=== PATIENT | male | born 1970 | race Caucasian/White ===

== ENCOUNTER 2017-07-10 07:54 | Day surgery (SDC) | payer OTHER ==
[~2017-07-10] VITALS: Ht 175.3 cm; Wt 108.9 kg
[2017-07-10 08:19] VITALS: BP 147/85
[2017-07-10 12:37] VITALS: BP 145/94
== END 2017-07-10 12:40 | disposition home or self-care (01) ==
LOC: DS 07:54 → OR 09:30 → DS 09:30
PROVIDERS: Neuromusculoskeletal Medicine, Sports Medicine
PROC: 0LN70ZZ Release Right Hand Tendon, Open Approach (ICD-10-PCS; principal; 2017-07-10 10:00)
DX: M65.311 Trigger thumb, right thumb (principal)
CPT/HCPCS: J0690; J2001; J2250; J2704; J3010; J7120